=== PATIENT | male | born 1975 | race Caucasian/White ===

== ENCOUNTER 2020-04-11 08:46 | Day surgery (SDC) | payer BC, SELFPAY ==
--- NOTE | 2020-04-10 13:52 | HO.ANESPROP2 ---
Documented by User: Tamera Miller 04/10/20 13:56 HPI - Anesthesia Eval Consult details Narrative: 44yo M for EGD [facility] Past Medical History Medical History (Updated 04/10/20 @ 13:56 by Tamera Miller) Fatty liver GERD (gastroesophageal reflux disease) Social History Social History (Updated 04/10/20 @ 13:55 by Tamera Miller) Are you a primary health care marketing manager to a significant other at home: No Do you presently have visiting nurse or other home services: No Smoking Status: Current every day smoker Packs Per Day: 0.5 Cigarettes Per Day: 10.0 Years Smoked: 27 Smoked in Last 30 Days: Yes Patient Interested in Nicotine Replacement: No Patient Given Instructions on How to Stop Smoking: No Use of substances other than those prescribed or required for medical reasons: No Advance Directives: No Advance Directives Information Provided: No (unknown) Advance Directives on File: No Meds Allergies Allergy/AdvReac Type Severity Reaction Status Date / Time No Known Allergies Allergy Unverified 03/01/20 15:56 Home Medications Medication Instructions Recorded Confirmed Type omeprazole 1 cap PO Q12H 04/10/20 04/10/20 History Exam Exam Date and Time: April 10, 2020 1352 Pertinent Lab Results Pertinent Lab Results: Laboratory Tests 12/22/19 12/22/19 16:02 16:02 WBC 8.7 Hgb 14.0 Hct 42.8 Plt Count 286 Sodium 138 Potassium 4.1 Chloride 103 BUN 15 Creatinine 1.37 Assessment and Plan Assessment Anesthesia Assessment: Chart Reviewed Documented by User: Leah Zaldivar 04/11/20 10:06 [facility] Past Medical History Medical History (Updated 04/10/20 @ 13:56 by Tamera Miller) Fatty liver GERD (gastroesophageal reflux disease) Social History Social History (Updated 04/10/20 @ 13:55 by Tamera Miller) Are you a primary health care marketing manager to a significant other at home: No Do you presently have visiting nurse or other home services: No Smoking Status: Current every day smoker Packs Per Day: 0.5 Cigarettes Per Day: 10.0 Years Smoked: 27 Smoked in Last 30 Days: Yes Patient Interested in Nicotine Replacement: No Patient Given Instructions on How to Stop Smoking: No Use of substances other than those prescribed or required for medical reasons: No Advance Directives: No Advance Directives Information Provided: No (unknown) Advance Directives on File: No Meds Allergies Allergy/AdvReac Type Severity Reaction Status Date / Time No Known Allergies Allergy Unverified 03/01/20 15:56 Home Medications Medication Instructions Recorded Confirmed Type omeprazole 1 cap PO Q12H 04/10/20 04/10/20 History Exam Airway Mallampati Class: II (Bottom teeth poor, some to be pulled, denies any loose) TM Dist: >3cm Neck ROM: Full Heart: RRR Lungs: CTA Bl Assessment and Plan Assessment Anesthesia Assessment: Anesthesia Plan Discussed and Chart Reviewed Final Anesthetic Review NPO: Yes ASA Class: II Final Preanesthetic Review: Meds/Allgs Chart Reviewed and Consent Obtained/Reviewed Patient Risk: Intermediate Procedure Risk: Intermediate Anesthetic Plan Anesthetic Plan: MAC: Disposition: Standard PACU
[2020-04-11 09:15] VITALS: BP 124/75; PULSE 54; RESP 16; TEMP 36.4; O2SAT 99; BMI 28.2
[2020-04-11 10:34] VITALS: BP 94/49; PULSE 61; RESP 16; TEMP 36.4; O2SAT 94
--- NOTE | 2020-04-11 10:39 | PM.OP ---
Brief Operative Note Date of procedure: 04/11/20 Pre-op diagnosis: GERD Post-op diagnosis: other (Hiatal hernia, GERD, R/O Light's) Procedure: EGD with biopsy Surgeon: Mateusz Anderson Anesthesia: MAC Estimated blood loss (mL): 3.0 Pathology: other (A. EG Junction at 37cm) Condition: stable Disposition: PACU
[2020-04-11 10:49] VITALS: BP 118/73; PULSE 61; RESP 18; O2SAT 97
--- NOTE | 2020-04-11 11:15 | HO.POSTANES ---
Post Anesthesia Evaluation Post Anesthesia Evaluation Vital Signs: Vital Signs Temp Pulse Resp BP Pulse Ox 04/11/20 10:49 97.5 F 61 18 118/73 97 04/11/20 10:34 97.5 F 61 16 94/49 L 94 04/11/20 09:15 97.6 F 54 16 124/75 99 Anesthesia: Monitored Mental Status: Awake Pain Control: Satisfactory Nausea/Vomiting: None Hydration: Adequate Anesthesia-Related Issues: No Anes. Related Issues
--- NOTE | 2020-04-11 11:35 | OP_ITS ---
SURGEON: Mateusz Anderson MD INDICATIONS: The patient presents for evaluation of chronic gastroesophageal reflux. Full consent has been obtained from him for this, including risks of bleeding and perforation. PREOPERATIVE DIAGNOSIS: Gastroesophageal reflux. POSTOPERATIVE DIAGNOSIS: PROCEDURE PERFORMED: Esophagogastroduodenoscopy with biopsies. ESTIMATED BLOOD LOSS: COMPLICATIONS: ANESTHESIA: Monitored anesthesia care. ASSISTANTS: SPECIMENS: POSTOPERATIVE DIAGNOSES: Gastroesophageal reflux, hiatal hernia, rule out Light's esophagus. DESCRIPTION OF PROCEDURE: The patient was placed in the left lateral decubitus position. The Olympus video gastroscope was passed in the posterior oropharynx and upper esophagus under direct vision. The scope was passed slowly into the distal esophagus. The gastroesophageal junction appeared at 37 cm. This area revealed some slight irregularity consistent with reflux and possibly small, less than 1 cm, areas of Light's mucosa. There was no esophagitis. There was a small hiatal hernia. The scope was advanced to pylorus and duodenum cannulated to the descending portion. The duodenum including the bulb appeared normal without mass or ulceration. The scope was withdrawn back in the stomach. The gastric antrum and body appeared normal with good peristalsis. The scope was retroflexed visualizing the proximal stomach carefully which appeared normal, without any sign of mass or ulceration. The scope was straightened out and withdrawn back into the esophagus. Biopsies were obtained at the EG junction at 37 cm. Proximal to this, the esophageal mucosa appeared normal. The scope was withdrawn from the patient. He tolerated the procedure well and was returned to the recovery area in stable condition. IMPRESSION: 1. Hiatal hernia, gastroesophageal reflux. 2. Rule out Light's esophagus. PLAN: The results of the biopsy will be checked. If there is evidence of Light's esophagus without dysplasia, I would recommend a repeat upper endoscopy in 3 years. He was advised to continue his daily omeprazole as he does report this is working well for him. He was advised not to use any aspirin or NSAIDs for 1 week. I did advise him to see me in several months for a followup visit as well. MD MARI Scott/BLAINE / [id number]
== END 2020-04-11 11:24 | disposition home or self-care (01) ==
PROVIDERS: Visit Provider Internal Medicine
PROC: 0DJ08ZZ Inspection of Upper Intestinal Tract, Via Natural or Artificial Opening Endoscopic (ICD-10-PCS; CPT 43235; principal; 2020-04-11 10:10)
DX: K21.9 Gastro-esophageal reflux disease without esophagitis (principal); K44.9 Diaphragmatic hernia without obstruction or gangrene; K76.0 Fatty (change of) liver, not elsewhere classified; Z79.899 Other long term (current) drug therapy; F17.210 Nicotine dependence, cigarettes, uncomplicated
CPT/HCPCS: 43239; 88305

== ENCOUNTER 2020-12-10 11:54 | Emergency (ER) | payer BC, SELFPAY ==
[2020-12-10] VITALS (7 sets, daily range): BP systolic 133–171; BP diastolic 81–92; PULSE 55–68; RESP 14–18; TEMP 36.6–36.8; O2SAT 97–99; BMI 25.8
--- NOTE | ~2020-12-10 | CT_ITS ---
EXAMINATION: CT HEAD WITHOUT CONTRAST CLINICAL INFORMATION: Near syncope. COMPARISON: None TECHNIQUE: Contiguous axial imaging was performed from the skull base to vertex without intravenous administration of contrast. This CT examination was performed using dose optimization techniques as appropriate, variously including the following: *Automated exposure control *Adjustment of mA and/or kV according to patient size (this includes techniques or standardized protocols for targeted exams where dose is matched to indication/reason for exam; i.e. extremities or head) *Use of iterative reconstruction technique DLP: 666 mGy-cm FINDINGS: There is no evidence of acute intracranial hemorrhage or territorial infarction. No abnormal mass effect or midline shift is seen. Anna to white matter differentiation is well preserved. No extra-axial fluid collections are identified. The ventricles are normal in size. There is no abnormal attenuation within the brain parenchyma. The osseous structures and soft tissues are normal. There is mild mucoperiosteal thickening bilateral maxillary, ethmoid and sphenoid sinuses. Rest of the paranasal sinuses are well-aerated and clear. CT/CT head/brain wo con IMPRESSION: No acute intracranial process seen. Chronic pansinusitis.
--- NOTE | ~2020-12-10 | XR_ITS ---
EXAMINATION: XR CHEST CLINICAL INFORMATION: Chest pain, SOB COMPARISON: Chest 12/22/2019 TECHNIQUE: Frontal view of the chest was obtained. FINDINGS: No significant abnormality is noted involving the heart, lungs, mediastinum, bony thorax or soft tissues. XR/XR chest 1V IMPRESSION: Unremarkable chest examination. No change from 12/22/2019
--- NOTE | 2020-12-10 12:09 | ECG_ITS ---
Test Reason : CHEST PAIN Blood Pressure : / mmHG Vent. Rate : 058 BPM Atrial Rate : 058 BPM P-R Int : 140 ms QRS Dur : 088 ms QT Int : 414 ms P-R-T Axes : 045 058 043 degrees QTc Int : 406 ms Sinus bradycardia Otherwise normal ECG When compared with ECG of 22-DEC-2019 13:13, T wave amplitude has increased in Anterior leads Referred By: Generic ED Physician Electronically Signed By:IVÁN VARGAS MD
[2020-12-10 14:18] LABS: MANUAL DIFF FLAG NO
[2020-12-10 14:19] LABS: Basophils Absolute Auto 0.1 X10*3/uL (0.0-0.2); Basophils Percent Auto 0.6 % (0-2); Eosinophils Absolute Auto 0.1 X10*3/uL (0.0-0.4); Eosinophils Percent Auto 0.7 % (0-4); Hematocrit 46.7 % (42-52); Hemoglobin 15.4 g/dl (14.0-18.0); Imm Gran Abs Auto 0.04 X10*3/uL (0.00-0.03); Imm Gran Pct Auto 0.4 % (0.0-0.4); Lymphocytes Absolute Auto 1.9 X10*3/uL (1.2-4.9); Lymphocytes Percent Auto 19.5 % (20-40); Mean Corpuscular Hemoglobin 30.6 pg (27.0-33.0); Mean Corpuscular Volume 92.7 fL (80-98); Mean Platelet Volume 10.5 fL (9.4-12.4); Monocytes Absolute Auto 0.6 X10*3/uL (0.1-1.2); Monocytes Percent Auto 6.4 % (2-11); Neutrophils Absolute Auto 6.9 X10*3/uL (2.0-8.3); Neutrophils Percent Auto 72.4 % (45-73); Platelet Count 311 X10*3/uL (160-400); Red Blood Count 5.04 X10*6/uL (4.60-5.80); Red Cell Distribution Width 12.4 % (11.0-16.0); White Blood Count 9.6 X10*3/uL (4.8-10.8)
[2020-12-10 14:43] LABS: Anion Gap 13 (12-20); Blood Urea Nitrogen 14 mg/dL (9-16); Calcium 9.9 mg/dL (8.4-10.2); Carbon Dioxide 28 mmol/L (22-29); Chloride 104 mmol/L (96-108); Creatinine Clr Calc Pharmacy 66.7; Estimated Glomerular Filt Rate > 60; Glucose Random 96 mg/dL (60-115); Potassium 4.5 mmol/L (3.3-5.1); Sodium 140 mmol/L (135-145)
[2020-12-10 14:50] LABS: Troponin-I High Sensitivity < 3.5 ng/L (<3.5-35.0)
--- NOTE | 2020-12-10 17:31 | ED_ITS ---
HPI - Chest Pain General Chief Complaint: Chest Pain Stated Complaint: Chest pain, cough, nausea Time Seen by Provider: 12/10/20 17:36 Source: patient Mode of arrival: ambulatory Limitations: no limitations History of Present Illness HPI narrative: Patient presents to the ED for waking up in the morning with coughing and yellow phlegm for the past 1 month. Patient admits to being a smoker. Patient states having chest pain only when he cough. Patient denies any swelling of lower extremities, calf pain, fever, or chills. Patient admits to being a smoker. patient denies coughing up blood. patient states this morning he was coughing so hard he almost passed out , but did not. Related Data Home Medications Medication Instructions Recorded Confirmed omeprazole 1 cap PO Q12H 04/10/20 04/10/20 Previous Rx's Medication Instructions Recorded benzonatate [Tessalon Perles] 100 mg PO TID PRN #15 cap 12/10/20 Allergies Allergy/AdvReac Type Severity Reaction Status Date / Time No Known Allergies Allergy Verified 12/10/20 12:04 Review of Systems Review of Systems: Yes all other systems are reviewed and are negative Constitutional: Constitutional: Reports as per HPI and Reports no additional constitutional complaints Eyes: Eyes: Reports as per HPI and Reports no additional eye complaints ENT: Reports system reviewed and no additional complaints, except as documented and Reports as per HPI Cardiovascular: Cardiovascular: Reports as per HPI, Reports no additional cardiovascular complaints, Reports chest pain ( only when he coughs), Denies dyspnea and Denies dyspnea on exertion Respiratory: Respiratory: Reports as per HPI, Reports no additional respiratory complaints, Reports pain with cough, Denies dyspnea and Denies dyspnea on exertion Gastrointestinal: Gastrointestinal: Reports as per HPI and Reports no additional gastrointestinal complaints Genitourinary: Genitourinary: Reports no additional male genitourinary complaints and Reports as per HPI Musculoskeletal: Musculoskeletal: Reports no additional musculoskeletal complaints and Reports as per HPI Neurologic: Reports system reviewed and no additional complaints, except as documented and Reports as per HPI Psychiatric: Psychiatric: Reports no additional psychiatric complaints and Reports as per HPI PMFSH Past Medical History Medical History (Updated 12/10/20 @ 21:46 by HAYLEE Askew) Fatty liver GERD (gastroesophageal reflux disease) Surgical History (Updated 12/10/20 @ 12:08 by Terri Fong RN) History of endoscopy Social History Social History (Updated 04/10/20 @ 13:55 by Tamera Miller) Are you a primary hearing care professional to a significant other at home: No Do you presently have visiting nurse or other home services: No Alcohol intake: current Alcohol intake frequency: a few times a week Alcohol type: beer Patient Tobacco Use Status: Current everyday Tobacco user Cigarette Packs Per Day: 0.5 Cigarettes Per Day: 10.0 Years Smoked: 27 Use of substances other than those prescribed or required for medical reasons: No Advance Directives: Yes Advance Directives Information Provided: Yes Advance Directives on File: No Physical Exam Vital Signs: Vital Signs: Last Vital Signs Temp 97.8 F 12/10/20 19:29 Pulse 58 12/10/20 19:29 Resp 18 12/10/20 19:29 BP 160/85 H 12/10/20 19:29 Pulse Ox 98 12/10/20 19:29 Body Mass Index 25.8 Const: General: cooperative, healthy appearing, comfortable, no acute distress, well developed, alert, awake and Physically active Orientation/consciousness: oriented to person, oriented to place, oriented to time and patient oriented x3 HENMT: Head: Yes normal to inspection, Yes No palpable skull fracture present, Yes normocephalic, Yes atraumatic and No abrasion Eyes: General: appearance normal, both eyes and all related structures Neck: Neck: Yes normal visual inspection, Yes full ROM, Yes no lymphadenopath y, Yes no meningeal signs, Yes trachea midline, Yes supple and No tender Chest: Chest palpation & inspection: normal inspection of the chest and normal palpation of entire chest wall Resp: Effort & Inspection: normal respiratory effort and able to speak in complete sentences Auscultation: clear to auscultation bilaterally Cardio: Jugular venous distension: no JVD Heart sounds: S1 normal heart sound present and S2 normal heart sound present GI: Inspection: Yes normal to inspection and No abdominal wall ecchymosis Palpation (GI): Soft to palpation, not firm, nontender, no guarding and not rigid : General: No CVA tenderness and Yes no CVA tenderness Back/Spine/Pelvis: Back: no CVA tenderness, No CVA tenderness and No back tenderness Skin: General skin exam: no rashes or lesions noted and elasticity normal Neuro: Other: negative facial droop General: oriented to person, oriented to place, oriented to time, patient oriented x3, gait normal, tone normal, moves all extremities, Normal light touch and pain sensation, no meningeal signs and CN's II-XI intact bilaterally Cranial nerves: Yes CN's II-XII intact bilaterally Cognition (Neuro): normal cognition Gait exam (Neuro): Normal gait present Extrem: Other: lower extremities negative for swelling, pitting edema, or calf pain Psych: Appearance: grossly normal, well kempt and not disheveled Course Course Course Narrative: patient will have labs including chest x-ray and COVID swab. Head CT ordered. Negative for any neuro deficit. sound like patient had his near syncopal episode Reevaluation(s) Reevaluation #1: D-dimer negative. First troponin negative. EKG does show sinus bradycardia. Negative STEMI. Chest x-ray negative pneumonia. Head CT came back normal. Time: 21:19 Reevaluation #2: Second troponin came back negative. Patient feels better after being given albuterol inhaler. . COVID swab came back negative. Diagnosis smoker's cough chronic bronchitis. Patient informed to stop smoking. Not suspecting AK or PE. Perc score 0. D-dimer negtive. Time: 21:41 MDM - Chest Pain MDM Narrative Medical decision making narrative: Smoker's Cough. Bronchitis Lab Data Result diagrams: 12/10/20 13:56 12/10/20 13:56 Labs: Lab Results 12/10/20 12/10/20 12/10/20 Range/Units 13:56 13:56 13:56 WBC 9.6 (4.8-10.8) X10*3/uL RBC 5.04 (4.60-5.80) X10*6/uL Hgb 15.4 (14.0-18.0) g/dl Hct 46.7 (42-52) % MCV 92.7 (80-98) fL MCH 30.6 (27.0-33.0) pg MCHC 33.0 (31.0-36.0) g/dl RDW 12.4 (11.0-16.0) % Plt Count 311 (160-400) X10*3/uL MPV 10.5 (9.4-12.4) fL Immature Gran % (Auto) 0.4 (0.0-0.4) % Neut % (Auto) 72.4 (45-73) % Lymph % (Auto) 19.5 L (20-40) % [place] % (Auto) 6.4 (2-11) % Eos % (Auto) 0.7 (0-4) % Baso % (Auto) 0.6 (0-2) % Lymph # (Auto) 1.9 (1.2-4.9) X10*3/uL [place] # (Auto) 0.6 (0.1-1.2) X10*3/uL Eos # (Auto) 0.1 (0.0-0.4) X10*3/uL Baso # (Auto) 0.1 (0.0-0.2) X10*3/uL Abs Immat Gran (auto) 0.04 H (0.00-0.03) X10*3/uL Absolute Neuts (auto) 6.9 (2.0-8.3) X10*3/uL Absolute Nucleated RBC 0.000 (0.0-0.012) X10*3/uL Nucleated RBC % (auto) 0.0 (0.0-0.2) /100WBC PT (10.8-13.0) SEC INR (0.9-1.1) APTT (24.1-38.0) SEC D-Dimer NG/ML Sodium 140 (135-145) mmol/L Potassium 4.5 (3.3-5.1) mmol/L Chloride 104 (96-108) mmol/L Carbon Dioxide 28 (22-29) mmol/L Anion Gap 13 (12-20) BUN 14 (9-16) mg/dL Creatinine 1.28 (0.5-1.4) mg/dL Estim Creat Clear Calc 66.7 Estimated GFR > 60 Random Glucose 96 (60-115) mg/dL Calcium 9.9 (8.4-10.2) mg/dL Troponin I High Sens < 3.5 (<3.5-35.0) ng/L B-Natriuretic Peptide (<100) pg/mL Coronavirus (PCR) (Negative) Influenza Type A (PCR) (Negative) Influenza Type B (PCR) (Negative) RSV RNA Qual (PCR) (Negative) 12/10/20 12/10/20 12/10/20 Range/Units 17:49 17:49 19:33 WBC (4.8-10.8) X10*3/uL RBC (4.60-5.80) X10*6/uL Hgb (14.0-18.0) g/dl Hct (42-52) % MCV (80-98) fL MCH (27.0-33.0) pg MCHC (31.0-36.0) g/dl RDW (11.0-16.0) % Plt Count (160-400) X10*3/uL MPV (9.4-12.4) fL Immature Gran % (Auto) (0.0-0.4) % Neut % (Auto) (45-73) % Lymph % (Auto) (20-40) % [place] % (Auto) (2-11) % Eos % (Auto) (0-4) % Baso % (Auto) (0-2) % Lymph # (Auto) (1.2-4.9) X10*3/uL [place] # (Auto) (0.1-1.2) X10*3/uL Eos # (Auto) (0.0-0.4) X10*3/uL Baso # (Auto) (0.0-0.2) X10*3/uL Abs Immat Gran (auto) (0.00-0.03) X10*3/uL Absolute Neuts (auto) (2.0-8.3) X10*3/uL Absolute Nucleated RBC (0.0-0.012) X10*3/uL Nucleated RBC % (auto) (0.0-0.2) /100WBC PT 12.4 (10.8-13.0) SEC INR 1.0 (0.9-1.1) APTT 32.9 (24.1-38.0) SEC D-Dimer < 200 NG/ML Sodium (135-145) mmol/L Potassium (3.3-5.1) mmol/L Chloride (96-108) mmol/L Carbon Dioxide (22-29) mmol/L Anion Gap (12-20) BUN (9-16) mg/dL Creatinine (0.5-1.4) mg/dL Estim Creat Clear Calc Estimated GFR Random Glucose (60-115) mg/dL Calcium (8.4-10.2) mg/dL Troponin I High Sens < 3.5 (<3.5-35.0) ng/L B-Natriuretic Peptide 51 (<100) pg/mL Coronavirus (PCR) NEGATIVE (Negative) Influenza Type A (PCR) NEGATIVE (Negative) Influenza Type B (PCR) NEGATIVE (Negative) RSV RNA Qual (PCR) NEGATIVE (Negative) ECG Data ECG #1: Interpretation: Sinus Bradycrdia. Richard rate 58. [place] interval 140, QRS 88. QTC 406. Negative for stemi. Discharge Plan Discharge Clinical Impression: Smokers' cough, Bronchitis Patient Disposition: Home, Self-Care Instructions: How to Stop Smoking (ED), Chronic Bronchitis (ED) Additional Instructions: return to the ED for any chest pain, shortness of breath, weakness, passing out, calf pain, coughing up blood, fever, chills, or any other concerning symptoms. EKG and troponins were negative for heart attack. Your D-dimer came back negative for risk of blood clot. Chest x-ray negative pneumonia. A COVID swab came back negative. BNP came back negative for CHF. Continue to use albuterol inhaler given to her by respiratory therapist 4 times a day 4 puffs as needed. Please follow-up with PCP Prescriptions: New benzonatate [Tessalon Perles] 100 mg capsule 100 mg PO TID PRN (Reason: cough) Qty: 15 RF: 0 No Action omeprazole 20 mg capsule,delayed release(DR/EC) 1 cap PO Q12H RF: 0 Stand Alone Forms: Work/School Release Print Language: [place]
--- NOTE | 2020-12-10 17:32 | PC.NURSE ---
Pt reports coughing fits every morning x 1 month, states productive for yellow phelgm. Pt presents with pain in chest to shoulders, worse with movement and palpation. Sinus shannon on tele. LS clear througout. Skin pwd. No diff breathing noted
[2020-12-10] MEDS: Albuterol Sulfate 90 MCG 8 GM INHALER 4 PUFF INHALE (17:53)
[2020-12-10 18:13] LABS: Prothrombin Time 12.4 SEC (10.8-13.0)
[2020-12-10 18:16] LABS: Partial Thromboplastin Time 32.9 SEC (24.1-38.0)
[2020-12-10 18:21] LABS: D Dimer < 200 NG/ML
[2020-12-10 18:44] LABS: Influenza A PCR NEGATIVE (Negative); Influenza B PCR NEGATIVE (Negative); Resp Syncy Virus RNA Qual PCR NEGATIVE (Negative); SARS COV2 PCR INHOUSE NEGATIVE (Negative)
[2020-12-10 20:16] LABS: Troponin-I High Sensitivity < 3.5 ng/L (<3.5-35.0)
[2020-12-10 21:37] LABS: B Type Natriuretic Peptide 51 pg/mL (<100)
== END 2020-12-10 22:31 | disposition home or self-care (01) ==
PROVIDERS: Physician Assistant; Emergency Provider Internal Medicine
DX: J41.0 Simple chronic bronchitis (principal); F17.210 Nicotine dependence, cigarettes, uncomplicated; Z71.6 Tobacco abuse counseling; Z20.822 Contact with and (suspected) exposure to COVID-19
CPT/HCPCS: 0241U; 36415; 70450; 71045; 80048; 83880; 84484; 85025; 85379; 85610; 85730; 93005; 94640; 99285